=== PATIENT | female | born 1955 | race Caucasian/White ===

== ENCOUNTER 2018-08-01 14:37 | Emergency (ER) | payer OTHER ==
--- NOTE | 2018-08-01 16:43 | Emergency Department Record ---
History of Present Illness - General Chief complaint: Cold Stated complaint: RANJIT,CHEST COLD, COUGH Time Seen by Provider: 08/01/18 16:26 Source: Patient Mode of Arrival: Ambulatory Limitations: No limitations - History of Present Illness Initial comments: The patient is here due to a cough and congestion for one week. She has had intermittent SOB and RANJIT like she gets with her asthma. There has been no CP, fever, chills, vomiting, or diarrhea. MD complaint: Other Onset/Timin -: Week(s) Consistency: Intermittent Associated Symptoms: Cough, Sore throat - Related Data Home Medications Medication Instructions Recorded Confirmed Last Taken Albuterol Sulfate [Proair 2 puff INH ASDIR 08/01/18 08/01/18 08/01/18 Respiclick] Apixaban [Eliquis] 5 mg PO DAILY 08/01/18 08/01/18 08/01/18 Budesonide/Formoterol Fumarate 10.2 gm IH DAILY 08/01/18 08/01/18 08/01/18 [Symbicort 80-4.5 Mcg Inhaler] Cholecalciferol (Vitamin D3) 2,000 unit PO DAILY 08/01/18 08/01/18 08/01/18 [Vitamin D3] Escitalopram Oxalate [Lexapro] 10 mg PO DAILY 08/01/18 08/01/18 08/01/18 Fluocinonide/Emollient Base 15 gm TP ASDIR 08/01/18 08/01/18 08/01/18 [Fluocinonide-E 0.05% Cream] Loratadine [Claritin] 10 mg PO DAILY 08/01/18 08/01/18 07/31/18 Metoprolol Succinate [Toprol Xl] 50 mg PO DAILY 08/01/18 08/01/18 08/01/18 Montelukast Sodium [Singulair] 10 mg PO QHS 08/01/18 08/01/18 07/31/18 Previous Rx's Medication Instructions Recorded Doxycycline Monohydrate [Mondoxyne 100 mg PO BID #14 capsule 08/01/18 Nl] Prednisone [Prednisone 20Mg] 40 mg PO DAILY #8 tab 08/01/18 Allergies Allergy/AdvReac Type Severity Reaction Status Date / Time adhesive Allergy BLISTERS Verified 08/01/18 16:14 ciprofloxacin [From Cipro] Allergy RASH Verified 08/01/18 16:14 metronidazole [From Flagyl] AdvReac NAUSEA Verified 08/01/18 16:14 Travel Screening - Travel/Exposure Within Last 30 Days Have you traveled within the last 30 days?: No - Travel/Exposure Within Last Year Have you traveled outside the [place] in the last year?: No - Additonal Travel Details Have you been exposed to anyone with a communicable illness?: No - Travel Symptoms Symptom Screening: None Review of Systems Constitutional: Reports: Malaise. Denies: Chills, Fever Eyes: Denies: Eye discharge ENT: Reports: Congestion Respiratory: Reports: Cough, Dyspnea. Denies: Hemoptysis Cardiovascular: Denies: Arrhythmia, Chest pain Past Medical History - SOCIAL HISTORY Smoking Status: Former smoker Alcohol Use: Occasional Drug Use: None - RESPIRATORY Hx Respiratory Disorders: Yes Hx Asthma: Yes - CARDIOVASCULAR Hx Cardio Disorders: Yes Hx Irregular Heartbeat: Yes (a fib) - NEURO Hx Neuro Disorders: No - GI Hx GI Disorders: No - Hx Genitourinary Disorders: No - ENDOCRINE Hx Endocrine Disorders: No - MUSCULOSKELETAL Hx Musculoskeletal Disorders: Yes Hx Arthritis: Yes - PSYCH Hx Psych Problems: Yes Hx Depression: Yes - HEMATOLOGY/ONCOLOGY Hx Hematology/Oncology Disorders: No Family Medical History Any Significant Family History?: Yes Family Hx Comment (NOT TO BE USED IN PLACE OF ITEMS BELOW): Dad had AAA Hx Resp Disorders: Mother Hx Stroke: Mother Physical Exam - General General Appearance: Alert, Oriented x3, Cooperative, No acute distress - Head Head exam: Atraumatic, Normocephalic, Normal inspection - Eye Eye exam: Normal appearance, PERRL - ENT Throat exam: Normal inspection. negative: Tonsillar erythema, Tonsillar exudate - Neck Neck exam: Normal inspection, Full ROM. negative: Tenderness - Respiratory Respiratory exam: Normal lung sounds bilaterally. negative: Accessory muscle use, Decreased breath sounds, Prolonged expiratory, Rales, Respiratory distress , Rhonchi, Wheezes - Cardiovascular Cardiovascular Exam: Normal heart sounds, Irregular rhythm - GI/Abdominal GI/Abdominal exam: Soft, Normal bowel sounds. negative: Tenderness - Extremities Extremities exam: Normal inspection, Full ROM, Normal capillary refill. negative: Tenderness - Back Back exam: Reports: Normal inspection - Neurological Neurological exam: Alert, Normal gait. negative: Abnormal gait, Motor sensory deficit Course Vital Signs 08/01/18 16:16 Temperature 99.4 F Pulse Rate 86 Respiratory 18 Rate Blood Pressure 165/101 Pulse Ox 96 - Reevaluation(s) Reevaluation #1: The patient is doing well at this time. She is resting comfortably with no cough , SOB, or RANJIT. I did discuss the lab tests with her and the normal CXR. She is to return to the ER for any worsening symptoms. 08/01/18 17:23 Medical Decision Making - Data Complexity MDM Data: Labs Ordered and/or Reviewed, X-Ray Ordered and/or Reviewed - Lab Data Result diagrams: 08/01/18 16:47 08/01/18 16:47 - Radiology Data Radiology results: Report reviewed (CXR: Neg for any acute changes.) Disposition Disposition: Discharge Clinical Impression: URI, acute Disposition: Home, Self-Care Condition: (2) Stable Instructions: Cold Symptoms (ED) Additional Instructions: Please continue your regular medicines and add the Doxycycline and Prednisone. Please see your family doctor for recheck early next week. Return to the ER for any worsening cough, or any fever, pain, shortness of breath or vomiting. Prescriptions: Doxycycline Monohydrate [Mondoxyne Nl] 100 mg PO BID #14 capsule Prednisone [Prednisone 20Mg] 40 mg PO DAILY #8 tab Forms: Patient Portal Access Time of Disposition: 17:26 Quality - Quality Measures Quality Measures: N/A - Blood Pressure Screening View Details: Yes Does Patient Have Any of the Following: Active Dx of HTN Blood Pressure Classification: Hypertensive Reading Systolic Measurement: 165 Diastolic Measurement: 101 Screening for High Blood Pressure: Patient Exclusion, Hx of HTN [[id number]]
[2018-08-01 16:56] LABS: HEMATOCRIT 43.9 % (35.0-47.0); HEMOGLOBIN 14.1 gm/dl (11.6-16.0); MEAN CELL VOLUME 101.6 fl (81-97); MEAN CORPUSCULAR HEMOGLOBIN 32.6 pg (27-33); MEAN CORPUSCULAR HGB CONC 32.1 g/dl (32-36); MEAN PLATELET VOLUME 10.4 fl (7.4-10.4); PLATELET COUNT 183 K/uL (130-400); RED BLOOD COUNT 4.32 M/uL (3.80-5.40); RED CELL DISTRIBUTION WIDTH 13.7 % (11.5-14.5); WHITE BLOOD COUNT W/O DIFF 9.2 K/uL (4.2-12.2)
[2018-08-01 17:04] LABS: PLATELET ESTIMATE NORMAL (NORMAL)
[2018-08-01 17:09] LABS: INR 1.2; PARTIAL THROMBOPLASTIN TIME 32.4 SECONDS (24.5-39.1); PROTHROMBIN TIME (PATIENT) 11.7 SECONDS (9.5-12.1)
[2018-08-01 17:10] LABS: BLOOD UREA NITROGEN 15 mg/dL (8-23); CREATININE 0.9 mg/dL (0.5-0.9); EST GLOMERULAR FILTRATION RATE > 60 mL/min; TOTAL PROTEIN 7.5 g/dL (6.6-8.7)
[2018-08-01 17:12] LABS: GLUCOSE,RANDOM 129 mg/dL (74-109)
[2018-08-01 17:15] LABS: ALB/GLOB RATIO 1.6 (1.1-1.8); ALBUMIN 4.6 g/dL (4.0-5.0); ALKALINE PHOSPHATASE 78 U/L (35-104); ALT/SGPT 13 U/L (<33); AST/SGOT 19 U/L (10.0-35.0)
[2018-08-01] MEDS: PREDNISONE 20 MG TAB PO ONE (17:23)
[2018-08-01] MEDS: DOXYCYCLINE HYCLATE 100 MG CAPSULE PO ONE (17:24)
--- NOTE | 2018-08-03 18:28 | RADIOLOGY REPORT ---
EXAM: CHEST 2 VIEWS HISTORY: ASPIRATION ONE WEEK AGO. COUGH AND INCREASED SHORTNESS OF BREATH. TECHNIQUE: PA and lateral upright views of the chest were obtained. COMPARISON: None. FINDINGS: The heart is normal in size. A pacemaker is present. The mediastinum and pulmonary vasculature are normal. The lungs are clear. There are no pneumothorax or effusion. The bones appear intact. IMPRESSION: NO ACUTE CHEST PATHOLOGY. JOB NUMBER: [id number] [facility]
== END 2018-08-01 17:32 | disposition home or self-care (01) ==
LOC: ER 14:37
DX: J02.9 Acute pharyngitis, unspecified (principal); R06.02 Shortness of breath; R05 Cough; I48.91 Unspecified atrial fibrillation; F17.210 Nicotine dependence, cigarettes, uncomplicated
CPT/HCPCS: 99283; 99284; 85730; 85610; 80053; 85027; 71046; J7512